=== PATIENT | male | born 1960 | race Caucasian/White ===

== ENCOUNTER → 2018-05-14 | Outpatient (CLI) | payer BC ==
[2018-05-14 07:23] LABS: Basophils # (A) 0.1 k/uL (0-0.2); Basophils % (A) 1 %; Eosinophils # (A) 0.2 k/uL (0-0.7); Eosinophils % (A) 4 %; HCT 49.9 % (39.0-53.0); HGB 17.6 gm/dL (13.0-17.5); Lymphocytes # (A) 1.6 k/uL (1.0-4.8); Lymphocytes % (A) 29 %; MCH 31.2 pg (25.0-35.0); MCHC 35.3 g/dL (31.0-37.0); MCV 88.4 fL (80.0-100.0); Mean Platelet Volume 7.9; Monocytes # (A) 0.4 k/uL (0-1.0); Monocytes % (A) 8 %; Neutrophils # (A) 3.1 k/uL (1.3-7.7); Neutrophils % (A) 56 %; Platelet Count 260 k/uL (150-450); RBC 5.65 m/uL (4.30-5.90); RDW 13.7 % (11.5-15.5); WBC 5.6 k/uL (3.8-10.6)
[2018-05-14 11:48] LABS: Albumin 4.3 g/dL (3.80-4.90); Albumin/Globulin Ratio 1.79 (1.60-3.17); Anion Gap 6.2 mmol/L (4.00-12.00); Calcium 9.3 mg/dL (8.7-10.3); Carbon Dioxide 29.8 mmol/L (21.6-31.8); Globulin 2.4 g/dL (1.6-3.3); LDL Cholesterol,Calculated 183.4 mg/dL (0.0-131.0); Potassium 4.7 mmol/L (3.5-5.5); Total Bilirubin 0.6 mg/dL (0.2-1.2); Total Protein 6.7 g/dL (6.2-8.2); VLDL Calculation 26.6 mg/dL (5.00-40.00)
[2018-05-14 11:58] LABS: T4, Free (Free Thyroxine) 1.1 ng/dL (0.80-1.80)
== END | disposition home or self-care (01) ==
LOC: LABWHC1 06:34
PROVIDERS: ATTEND Physician Assistant
DX: Z00.00 Encounter for general adult medical examination without abnormal findings (principal); I10 Essential (primary) hypertension; Z11.59 Encounter for screening for other viral diseases
CPT/HCPCS: 36415; 80053; 80061; 84153; 84439; 84443; 85025; 86803

== ENCOUNTER → 2018-07-23 | Outpatient (CLI) | payer BC ==
--- NOTE | 2018-07-25 21:34 | XR ---
EXAMINATION TYPE: XR foot complete LT DATE OF EXAM: 07/23/2018 CLINICAL HISTORY: Pain after fall injury today. TECHNIQUE: Frontal, lateral, and oblique images of the left foot are obtained. COMPARISON: None FINDINGS: There are comminuted minimally displaced fractures through proximal metadiaphysis of the f ourth and fifth proximal phalanx. The joint spaces in the left foot appear within normal limits. Sma ll to tiny superior and inferior calcaneal spurs are present. Mild plantar surface subcutaneous edema is seen. IMPRESSION: There are acute comminuted minimally displaced fracture through proximal metadiaphysis of the fourth and fifth proximal phalanx. (Initial encounter closed type post traumatic fracture)
== END | disposition home or self-care (01) ==
LOC: RADXRMAIN 15:48
PROVIDERS: ATTEND Family Medicine
DX: S92.412A Displaced fracture of proximal phalanx of left great toe, initial encounter for closed fracture (principal); S92.512A Displaced fracture of proximal phalanx of left lesser toe(s), initial encounter for closed fracture

== ENCOUNTER → 2019-02-03 | Outpatient (CLI) | payer BC ==
--- NOTE | 2019-02-04 09:15 | XR ---
Cervical spine HISTORY: Neck pain 3 views of the cervical spine There is multilevel spondylosis. Motion is present on the exam. Minimal anterolisthesis grade 1 C2-3, C4-5, retrolisthesis grade 1 C5-6. Cervical vertebral bodies show preserved height. Loss of disc hei ght present at C5-6 and C6-7. Prevertebral soft tissues are normal. Some sclerosis present in the pos terior elements. Possible atherosclerotic calcification within the right bifurcation region. IMPRESSION: Degenerative disc disease. Facet arthropathy.
== END | disposition home or self-care (01) ==
LOC: RADXRMAIN 16:15
PROVIDERS: ATTEND Family Medicine
DX: M50.30 Other cervical disc degeneration, unspecified cervical region (principal); M46.96 Unspecified inflammatory spondylopathy, lumbar region
CPT/HCPCS: 72040

== ENCOUNTER → 2019-10-27 | Outpatient (CLI) | payer BC ==
--- NOTE | 2019-10-27 13:22 | XR ---
EXAMINATION TYPE: XR chest 2V DATE OF EXAM: 10/27/2019 COMPARISON: 04/13/2011 TECHNIQUE: PA and lateral views submitted. HISTORY: Preop FINDINGS: The lungs are clear and there is no pneumothorax, pleural effusion, or focal pneumonia. No overt fa ilure. Arthropathy of the shoulders. Hypertrophic and degenerative change of the spine. IMPRESSION: 1. No acute process.
== END | disposition home or self-care (01) ==
LOC: RADXRMAIN 12:51
PROVIDERS: ATTEND Family Medicine
DX: Z01.818 Encounter for other preprocedural examination (principal)
CPT/HCPCS: 71046

== ENCOUNTER → 2019-12-02 | Outpatient (CLI) | payer BC ==
--- NOTE | 2019-12-02 17:11 | XR ---
EXAMINATION TYPE: XR cervical spine w flex/ext DATE OF EXAM: 12/02/2019 TECHNIQUE: Frontal, lateral neutral/flexion/extension, oblique, and open mouth view of the cervical s pine are obtained. HISTORY: M43.12 Spondylosis COMPARISON: Cervical spine radiograph 02/03/2019 FINDINGS: The cervical spine is visualized in its entirety from C1 thru the top of T1 level. There i s anterior fusion hardware of C5-C6 with interbody spacer device. No evidence of hardware fracture or loosening. There is grade 1 anterolisthesis of C4 on C5 demonstrated on flexion view only. No eviden ce of spondylolisthesis on neutral or extension views. Normal alignment without evidence of acute fra cture or dislocation. There is anterior osteophytosis C4-C5 and C6-C7. There is mild disc space narro wing at C6-C7. The pre-vertebral soft tissue appears within normal limits. Neural foramina demonstrat e multilevel bilateral varying degrees of bony encroachment. The atlantoaxial relationship and base o f the dens is within normal limits on the open mouth view. IMPRESSION: 1. No acute fracture or dislocation is seen in the cervical spine. 2. Anterior fusion of C5-C6 with no evidence of hardware failure. 3. Grade 1 anterolisthesis of C4 on C5 on flexion view only. 4. Degenerative disc disease and facet arthropathy with multilevel neural foraminal bony encroachmen t.
--- NOTE | 2019-12-02 17:11 | XR ---
EXAMINATION TYPE: XR chest 2V DATE OF EXAM: 12/02/2019 CLINICAL HISTORY: M54.6 Thoracic back pain. TECHNIQUE: Frontal and lateral view of the chest. COMPARISON: 10/27/2019 chest radiograph FINDINGS: Cervical spine fusion hardware. The cardiomediastinal silhouette is within normal limits f or size. Pulmonary vasculature is normal. There is no focal air space opacity, pleural effusion, or p neumothorax seen. Degenerative spurring of the thoracic spine. IMPRESSION: No acute cardiopulmonary process.
== END | disposition home or self-care (01) ==
LOC: RADXRMAIN 13:37
PROVIDERS: ATTEND Neurological Surgery
DX: M50.30 Other cervical disc degeneration, unspecified cervical region (principal); M43.12 Spondylolisthesis, cervical region; Z98.1 Arthrodesis status; M54.6 Pain in thoracic spine
CPT/HCPCS: 71046; 72052

== ENCOUNTER → 2020-01-13 | Outpatient (CLI) | payer BC ==
--- NOTE | 2020-01-13 15:46 | XR ---
Cervical spine HISTORY: Postop, M 43.12, M 47.12, M 50.122 7 views of the cervical spine correlated prior exam 12/02/2019 Postop changes status post anterior cervical fusion and discectomy noted at C5-6 with intervertebral disc replacement change, hardware is intact and stable. Spondylosis is again noted at C6-7 with assoc iated loss of disc height. No significant change in appearance on flexion and extension views compare d to prior exam, minimal anterolisthesis grade 1 C4-5 in flexion view normalizes on extension. Cervic al vertebral bodies show preserved height and bone mineralization. Foraminal encroachment present arthur aterally at 5 6 and C6-7, there is multilevel facet arthropathy change. IMPRESSION: Stable neurosurgical follow-up as described.
== END | disposition home or self-care (01) ==
LOC: RADXRMAIN 12:15
PROVIDERS: ATTEND Neurological Surgery
DX: M47.12 Other spondylosis with myelopathy, cervical region (principal); M43.12 Spondylolisthesis, cervical region; M50.122 Cervical disc disorder at C5-C6 level with radiculopathy
CPT/HCPCS: 72052

== ENCOUNTER → 2020-12-07 | Outpatient (CLI) | payer BC ==
--- NOTE | 2020-12-07 16:22 | XR ---
Lumbar spine HISTORY: M 54.503 views of the lumbar spine, no comparisons 3 views of the lumbar spine There is anterolisthesis grade 1 L4-5, retrolisthesis grade 1 L5-S1. Lumbar vertebral bodies show pre served height. Loss of disc height is greatest at L5-S1 but also present L4-5, L2-3. Bone mineralizat ion is reduced. Sclerosis is present in the posterior elements of the lower lumbar spine. There is mu ltilevel spondylosis. Atherosclerotic calcifications are present in the aortoiliac distribution. IMPRESSION: Degenerative disc disease and facet arthropathy, osteopenia.
== END | disposition home or self-care (01) ==
LOC: RADXRMAIN 15:41
PROVIDERS: ATTEND Family Medicine
DX: M51.37 Other intervertebral disc degeneration, lumbosacral region (principal); M46.97 Unspecified inflammatory spondylopathy, lumbosacral region
CPT/HCPCS: 72100

== ENCOUNTER → 2021-08-19 | Outpatient (CLI) | payer BC ==
--- NOTE | 2021-08-20 08:49 | MR ---
EXAMINATION TYPE: MR elbow LT wo con DATE OF EXAM: 08/19/2021 6:33 AM COMPARISON: Radiograph 07/22/2021. CLINICAL INDICATION:Male, 61 years old with history of L elbow pain; TECHNIQUE: Multiplanar multi-sequence imaging was performed of the elbow joint. No gadolinium given. FINDINGS: Ligaments and tendons: There is a high-grade tear of the common extensor tendon at its origin and ass ociated tear of the radial collateral ligament which were seen on prior on 03/15/2014. Superimposed acu te edema changes remain present. This also a similar appearance of the ulnar collateral ligament with two well-corticated osseous bodies suggestive of remote injury. High signal within the biceps brachi i tendon at its insertion is new from 2015. Osseous structures: The bone marrow signal intensity is unremarkable. A small amount of joint fluid is noted. Enlarging lateral forearm subcutaneous lipoma now measuring 4.0 x 3.6 x 1.5 cm (CC, AP, TV) previousl y 2.7 x 3.1 x 1.2 cm. IMPRESSION: 1. 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 2. High-grade tear of the common extensor tendon at its origin and associated tear of the radial col lateral ligament which was present on prior 03/15/2014 superimposed acute on chronic tear not entirely excluded. 3. Interval increase in size of lateral forearm subcutaneous lipoma. 4. Remote injury to the ulnar collateral ligament. 5. Small joint effusion.
== END | disposition home or self-care (01) ==
LOC: RADMRIMAIN 05:59
PROVIDERS: ATTEND Orthopaedic Surgery
DX: M25.522 Pain in left elbow (principal); D17.22 Benign lipomatous neoplasm of skin and subcutaneous tissue of left arm

== ENCOUNTER 2021-12-04 12:56 | Day surgery (SDC) | payer BC ==
--- NOTE | 2021-12-02 15:23 | P.HPOR ---
History of Present Illness H&P Date: 12/02/21 Chief Complaint: Left carpal tunnel syndrome. Left upper extremity soft tissue mass Subjective: This is a 61 year old male that presents today for follow up evaluation regarding a several year history of a left upper extremity lipoma as well as weakness with registered nurse practitioner strength and occasional paresthesias in the finger tips. He has a history of lipoma excision many years prior as well as a history of cervical spine surgery in 2019. He denies any injury and denies any pain. He recently had an EMG/NCV completed. Physical Examination: LUE: AIN/PIN/Radial/Ulnar/Median motor intact. Radial/Ulnar/Median SILT. 2+/4 Radial/Ulnar pulses palpated. 5/5 APB, 5/5 FDI. Negative Finkelsteins, negative CMC grind, negative Durkan's compression. Elbow ROM 0-130 without pain. Stable to varus/valgus stress. 4cm round lipomatous appearing mass on lateral aspect of elbow/distal humerus region. Imaging: MRI of the left elbow demonstrates biceps brachii insertional tendinosis, high grade tear of common extensor tendon at its origin with associated tear of RCL which was present on 03/15/2014 imaging study. Interval increase in size of lateral forearm subcutaneous lipoma, 4x 3.6x 1.5 cm. EMG/NCV: Moderate left carpal tunnel syndrome Impression: 1.) Left upper extremity lipoma, 4x4cm 2.) Left carpal tunnel syndrome 3.) History of cervical spine surgery. Plan: Diagnosis and treatment options were discussed with the patient. We discussed MRI findings and that his lipoma has grown slightly compared to 2015 imaging. We also discussed the chronic findings of RCL and common extensor tendon origin tearing, in regards to both of these findings he is asymptomatic . We discussed possible excision of the lipoma that he has noticed is continuing to grow. He would like to proceed with left endoscopic vs open carpal tunnel release as well as left elbow soft tissue mass excision. Risks and benefits of surgery including bleeding, infection, damage to surrounding tissue, need for further surgery, possible need to convert to open procedure, residual numbness were discussed and the patient wished to go forward with surgery. -William Carlson DO Orthopedic Hand/Upper Extremity Surgeon Medications and Allergies Allergies Allergy/AdvReac Type Severity Reaction Status Date / Time No Known Allergies Allergy Verified 12/02/21 15:01 Physical Examination Osteopathic Statement: *. No significant issues noted on an osteopathic structural exam other than those noted in the History and Physical/Consult.
[~2021-12-04 12:56] MED LIST: DEXAMETHASONE SOD PHOSPHATE 4 MG/ML 1 ML VIAL IV ONE; HYDROmorphone 0.5 MG/0.5 ML SYRINGE IVP PRN; LACTATED RINGERS 1,000 ML IV SCH; ONDANSETRON 4 MG/2 ML VIAL IVP ONE
[2021-12-04] MEDS ORDERED: LIDOCAINE 1% (10MG/ML) FOR IV START INTRADERMA ONE (14:00)
[2021-12-04] MEDS ORDERED: PHENYLEPHRINE-0.9% NACL SYG 1,000 MCG/10 ML SYRINGE ONE (15:05)
[2021-12-04] MEDS ORDERED: SUCCINYLCHOLINE CHLORIDE 200 MG/10 ML VIAL IV ONE (15:05)
[2021-12-04] MEDS ORDERED: fentaNYL (PF) 50 MCG/ML 2 ML AMP ONE ×2 (15:05)
[2021-12-04] MEDS ORDERED: PROPOFOL 10 MG/ML 20 ML VIAL IV ONE (15:05)
[2021-12-04] MEDS ORDERED: LIDOCAINE 2% INJ 20 MG/ML (2 ML VIAL) ONE (15:05)
[2021-12-04] MEDS ORDERED: BUPIVACAINE (PF) 0.5% 30 ML VIAL SQ ONE ×2 (15:40→15:59)
[2021-12-04 16:24] VITALS: TEMP 97
[2021-12-04 16:56] VITALS: RESP 14
[2021-12-04 17:14] VITALS: BP 119/79; PULSE 62
--- NOTE | 2021-12-04 20:51 | P.OP ---
Date of Procedure: 12/04/21 Preoperative Diagnosis: 1.) Left carpal tunnel syndrome 2.) Left elbow soft tissue mass Postoperative Diagnosis: 1.) Left carpal tunnel syndrome 2.) Left elbow soft tissue mass Procedure(s) Performed: 1.) Left endoscopic carpal tunnel release 2.) Left elbow soft tissue mass excision [id number], subcutaneous. Anesthesia: JENN Surgeon: William Carlson Osteopathic Resident #1: Clark Colbert Estimated Blood Loss (ml): 5 Pathology: other (Left elbow soft tissue mass) Condition: stable Disposition: PACU Description of Procedure: This is a 61 year old male who presents today for a left endoscopic carpal tunnel release a left elbow recurrent soft tissue mass excision after having failed conservative treatment in the past. Risks and benefits of surgery were discussed with the patient including bleeding, damage to surrounding tissue, infection, need to convert to open procedure, need for further surgery as well as risks of anesthesia including pulmonary embolism and even and the patient wished to proceed with surgical intervention. The patients was seen in the pre-operative area by myself. Consent and H&P were completed and updated. The correct extremity was marked in the pre-operative area by myself and all other questions were answered. Operative Narrative: The patient was brought to the operating room by the department of anesthesia. They remained on the portable stretcher and a rolling hand table was brought to the side of the operative extremity. Pre-operative time out was performed indicating the correct patient, procedure and laterality. All in the room agreed. The patient was then drifted off to sleep by the department of anesthesia. A nonsterile tourniquet was then applied to the operative extremity and the Left upper extremity was then prepped and draped in normal sterile fashion. The operative extremity was the exsanguinated with an esmarch bandage and the tourniquet was inflated to 250mmHg. 15 blade scalpel was utilized to make a transverse incision on the palmar skin just ulnar to the palmaris longus tendon at the level of the distal wrist crease. Ragnell retractor was then placed radially and blunt dissection was performed to reveal the distal forearm fascia. This was lifted with fine Holegr pick ups and Littler tenotomy scissors were then used to open the forearm fascia transversely and a double skin hook was then placed. Hamate finder was placed into the carpal tunnel and then sequential sized dilators were inserted followed by the synovial elevator to separate the flexor tenosynovium from the undersurface of the transverse carpal ligament and a washboard texture was felt. The Micro[employer] endoscopic carpal tunnel release system gun was the then inserted into the carpal tunnel hugging the deep portion of the transverse carpal ligament in line with the base of the ring finger. Transverse fibers of the ligament were directly visualized. Pressure was applied on the palm to reveal the distal extent of the transverse carpal ligament. The blade was then deployed and the distal half of the transverse carpal ligament was released. The scope was then brought distal again and remaining transverse fibers were incised with the blade. The proximal half of the transverse carpal ligament was then divided and again the scope was advanced distal and remaining transverse fibers were incised with the blade. The radial and ulnar leaflets were directly visualized and mobile consistent with complete release. Tenotomy scissors were then utilized to release the remaining distal forearm fascia under direct visualization taking care to preserve the palmar cutaneous branch of the median nerve. Skin closure was then performed with 4-0 Monocryl suture. Attention was then drawn to the lateral elbow. A longitudinal incision was made overlying the lateral elbow mass with 15 blade scalpel. Blunt dissection was taken down through subcutaneous tissues. Immediately it was apparent that the mass had a lipoma appearance with abundant fatty tissue measuring [id number]. With direct pressure around the mass the mass was able to be expressed from the subcutaneous tissues out of the skin incision. The mass was grasped and the stalk was identified and excised. The wound was then copiously irrigated. Skin closure was performed with interrupted 4-0 Monocryl suture followed by Mastisol and steri strips. A 50:50 mixture of 1% Lidocaine and 0.5% bupivacaine was injected into the subcutaneous tissues of the palmar skin and elbow, 20ccs total. Sterile dressing was applied consisting of 4x4s, Webril, and an adela bandage. Tourniquet was let down and the hand immediately was well perfused. The patient was then woken by the department of anesthesia and transferred to PACU in stable condition. Clark MAYO was present for the case in its entirety and assisted in major portions of the case and protection of vital neurovascular structures. William Carlson D.O. Orthopedic Hand/Upper Extremity Surgeon
== END 2021-12-04 17:26 | disposition home or self-care (01) ==
LOC: OR 12:56
PROVIDERS: ATTEND Orthopaedic Surgery Hand Surgery
DX: G56.02 Carpal tunnel syndrome, left upper limb (principal); R22.32 Localized swelling, mass and lump, left upper limb
CPT/HCPCS: 29848; 24071; 88304; J0330; J1100; J0690; J2405; J3010; J2370; J2704; J2001